=== PATIENT | female | born 1960 | race Caucasian/White ===

== ENCOUNTER 2022-11-12 10:47 | Outpatient (CLI) | payer BC | END 2022-11-12 10:48 | disposition home or self-care (01) | LOC: MADLAB 10:47 | PROVIDERS: ATTEND Nurse Practitioner Family | DX: R06.02 Shortness of breath (principal); J01.90 Acute sinusitis, unspecified; F41.9 Anxiety disorder, unspecified; I10 Essential (primary) hypertension; E78.5 Hyperlipidemia, unspecified; E03.9 Hypothyroidism, unspecified; R00.0 Tachycardia, unspecified; R12 Heartburn; R09.89 Other specified symptoms and signs involving the circulatory and respiratory systems | CPT/HCPCS: 71046 ==

== ENCOUNTER 2023-07-13 08:00 | Emergency (ER) | payer BC ==
[2023-07-13] MEDS ORDERED: HYDROcodone/Acetaminophen 5/325 mg Tablet ONE (09:16)
[2023-07-13] MEDS ORDERED: Orphenadrine Citrate 60 MG/2 ML VIAL ONE (09:17)
[2023-07-13] MEDS ORDERED: predniSONE 20 MG TAB ONE (09:17)
[2023-07-13] MEDS ORDERED: Ketorolac Tromethamine 60 MG/2 ML VIAL ONE (09:17)
[2023-07-13] MEDS ORDERED: Ondansetron ODT 4 MG TAB ONE (10:39)
[2023-07-13] MEDS ORDERED: Morphine 4 MG/ML VIAL ONE (10:39)
== END 2023-07-13 12:20 | disposition home or self-care (01) ==
LOC: MADERS 08:00
DX: M51.36 Other intervertebral disc degeneration, lumbar region (principal); E03.9 Hypothyroidism, unspecified; E78.00 Pure hypercholesterolemia, unspecified; K21.9 Gastro-esophageal reflux disease without esophagitis; F17.210 Nicotine dependence, cigarettes, uncomplicated; Z79.82 Long term (current) use of aspirin; Z79.899 Other long term (current) drug therapy
CPT/HCPCS: 72131; 94760; 96372; J1885; J2270; J2360; J7512; Q0162

== ENCOUNTER 2024-04-20 15:54 | Outpatient (CLI) | payer BC | END 2024-04-20 15:55 | disposition home or self-care (01) | LOC: MADRAD 15:54 | PROVIDERS: ATTEND Orthopaedic Surgery | DX: M54.50 Low back pain, unspecified (principal); M47.816 Spondylosis without myelopathy or radiculopathy, lumbar region | CPT/HCPCS: 72100 ==

== ENCOUNTER 2025-06-08 12:26 | Emergency (ER) | payer BC ==
[~2025-06-08 12:26] MED LIST: Iopamidol 370 76% 100 ML VIAL ONE
[2025-06-08] MEDS ORDERED: Ketorolac Tromethamine 30 MG (1 mL) VIAL ONE (13:01)
[2025-06-08] MEDS ORDERED: Ondansetron PF 4 MG/2 ML Vial ONE (13:01)
[2025-06-08 13:18] LABS: Hematocrit 46.5 % (36.0-47.0); Hemoglobin 15.3 g/dL (12.0-16.0); Mean Corpuscular Hemoglobin 29.8 pg (27.0-31.0); Mean Corpuscular Volume 90.4 fl (78.0-98.0); Platelet Count 179 10x3/uL (130-400); Red Blood Cell (RBC) Count 5.15 mill/uL (4.20-5.40); White Blood Cell (WBC) Count 8.0 10x3/uL (4.8-10.8)
[2025-06-08 13:23] LABS: ALT (SGPT) 16 U/L (Less than 34); AST (SGOT) 29 U/L (11-34); Albumin 4.2 g/dL (3.1-4.5); Alkaline Phosphatase 67 U/L (40-110); Anion Gap 17 mmol/L (10-20); BUN (Urea Nitrogen) 23 mg/dL (9.8-20.1); Bilirubin, Total 0.5 mg/dL (0.3-1.2); Calc. Creatinine Clearance 0 mL/min (70-130); Calcium 9.5 mg/dL (7.8-10.44); Carbon Dioxide 23 mmol/L (23-31); Chloride 99 mmol/L (98-107); Globulin 2.9 g/dL (2.4-3.5); Glucose 109 mg/dL (80-115); Potassium 3.9 mmol/L (3.5-5.1); Sodium 135 mmol/L (136-145)
[2025-06-08 13:24] LABS: MDiff Complete? YES; Manual Diff?? YES
[2025-06-08 13:25] LABS: Platelet Adequacy Comment Appears Adequate
[2025-06-08 13:41] LABS: Glucose, Urine (Dipstick) Negative (Negative); Leukocyte Negative (Negative); Protein, Urine (Dipstick) Negative (Neg-Trace); Specific Gravity, Urine 1.020 (1.005-1.030)
[2025-06-08 13:47] LABS: Bacteria/HPF Rare-Few HPF (None Seen); CAUTI Indications for Culture Dysuria,urgency,freq; RBC/HPF 0-3 HPF (0-3); WBC/HPF 0-3 HPF (0-3)
[2025-06-08 13:48] LABS: Urine Culture Reflex No No
== END 2025-06-08 15:00 | disposition home or self-care (01) ==
LOC: MADERS 12:26
DX: M79.2 Neuralgia and neuritis, unspecified (principal); F17.210 Nicotine dependence, cigarettes, uncomplicated
CPT/HCPCS: 74177; 80053; 81001; 85025; 96374; 96375; 96376; J1885; Q9967

== ENCOUNTER 2025-08-27 16:25 | Outpatient (CLI) | payer MEDICARE, BC | END 2025-08-27 16:26 | disposition home or self-care (01) | LOC: MADRAD 16:25 | PROVIDERS: ATTEND Orthopaedic Surgery | DX: M54.16 Radiculopathy, lumbar region (principal) | CPT/HCPCS: 72131 ==